=== PATIENT | female | born 1945 | race Caucasian/White ===

== ENCOUNTER → 2016-05-12 | Outpatient (CLI) | payer MEDICARE ==
--- NOTE | 2016-05-12 13:49 | MAM ---
EXAM DESCRIPTION: MAMMO BREAST SCREENING BILATERAL CAD, images were reviewed with CAD technology, R2 computer-aided detection. CLINICAL HISTORY: [facility]. COMPARISON: No prior study currently available. FINDINGS: Routine views are obtained. Scattered glandular contour with slight nodularity and the increased mammographic density period lobulated nodule left breast 12 o'clock, approximately 4 cm from the nipple sonographically. Benign calcifications. No architectural distortion or mammographic abnormality on the right.. IMPRESSION: Incomplete study. BIRAD CATEGORY: 0 INCOMPLETE RECOMMENDATIONS: FOLLOW-UP: Directed left breast sonography. According to the [employer], yearly mammograms are recommended starting at age 40 and continuing as long as a woman is in good health. Any breast change noted on a breast self-exam should be reported promptly to the patient's healthcare provider. Breast MRI is recommended for women with an approximately 20-25% or greater lifetime risk of breast cancer, including women with a strong family history of breast or ovarian cancer and women who have been treated for Hodgkin's disease. Electronically signed by: Lelo Pradhan 05/12/2016 13:48
== END ==
LOC: MAMMO 09:57
PROVIDERS: ATTEND Obstetrics & Gynecology
DX: Z12.31 Encounter for screening mammogram for malignant neoplasm of breast (principal)
CPT/HCPCS: 77052; G0202

== ENCOUNTER → 2016-05-28 | Outpatient (CLI) | payer MEDICARE ==
--- NOTE | 2016-05-28 10:38 | US ---
EXAM DESCRIPTION: US BREAST UNILATERAL CLINICAL HISTORY: Mammographic nodule left breast 12 o'clock. COMPARISON: Screening evaluation 05/12/2016 and prior study from 2013. FINDINGS: Directed left breast ultrasound is performed. A lobule of normal fibroglandular tissue is demonstrated 4 cm from the nipple at 12 o'clock in the left breast with morphology consistent with the nodular density seen on the mammogram. Sonography of the 11-1 o'clock region demonstrated no its sonographic abnormality. IMPRESSION: Benign exam. Mammographic nodule corresponds to a fibroglandular ridge of tissue. There is no sonographic evidence for malignancy. BIRAD CATEGORY: 2 BENIGN RECOMMENDATION: Routine annual mammography. Findings and recommendations were communicated to the patient by the technologist. Electronically signed by: Lelo Pradhan 05/28/2016 10:37
== END | disposition home or self-care (01) ==
LOC: MAMMO 09:30
PROVIDERS: ATTEND Obstetrics & Gynecology
DX: R92.8 Other abnormal and inconclusive findings on diagnostic imaging of breast (principal)

== ENCOUNTER → 2017-07-06 | Outpatient (CLI) | payer MEDICARE ==
--- NOTE | 2017-07-08 16:45 | MAM ---
EXAM DESCRIPTION: 3D Screening BILATERAL : Digital Mammography. CLINICAL HISTORY: 72 years Female ANNUAL SCREENING . No complaints. Remote family history of breast cancer. Postmenopausal. No complaints. COMPARISON: 2-D digital screening bilateral study 05/12/2016. 2-D diagnostic left breast ultrasound 05/28/2016. Reports from prior examinations also reviewed. TECHNIQUE: Bilateral CC and MLO projection full-field images, 3-D tomosynthesis digital mammographic technique. Also bilateral synthesized CC/ MLO full-field images. CAD not utilized. FINDINGS: The breast parenchymal density pattern is: Scattered areas of fibroglandular density. No skin thickening or nipple retraction . Bilateral solitary calcifications. No focal, stellate mass or density, focal asymmetry , and no suspicious microcalcifications bilaterally. Stable mammograms compared to prior study, taking into account differences in mammographic technique IMPRESSION: BI-RADS CATEGORY: 2 - BENIGN FINDINGS. FOLLOW UP: Routine digital bilateral screening, one year interval from June 2017. Written communication explaining the IMPRESSION and follow-up, will be mailed to the patient and referring health care provider. According to the [employer], yearly mammograms are recommended starting at age 40 and continuing as long as a woman is in good health. Any breast change noted on a breast self-exam should be reported promptly to the patient's healthcare provider. Breast MRI is recommended for women with an approximately 20-25% or greater lifetime risk of breast cancer, including women with a strong family history of breast or ovarian cancer and women who have been treated for Hodgkin's disease. A negative mammographic report should not delay tissue diagnosis in patients with significant clinical history or physical findings. Extremely dense breast tissue limits the sensitivity of digital mammography. Electronically signed by: Deepak Diaz MD 07/08/2017 4:43 PM CDT
== END ==
LOC: MAMMO 11:26
PROVIDERS: ATTEND Family Medicine Geriatric Medicine
DX: Z12.31 Encounter for screening mammogram for malignant neoplasm of breast (principal)

== ENCOUNTER → 2018-07-08 | Outpatient (CLI) | payer MEDICARE ==
--- NOTE | 2018-07-12 14:28 | MAM ---
EXAM DESCRIPTION: 3D Screening BILATERAL : Digital Mammography. CLINICAL HISTORY: 73 years Female SCREENING . No complaints. No personal history of breast cancer. Remote family history of breast cancer. Childbirth. Postmenopausal 30 years. No HRT. Lifetime risk of developing breast cancer (Tyrer-Cuzick model)(%): 3.4. COMPARISON: Bilateral screening digital breast tomosynthesis 07/06/2017. TECHNIQUE: Bilateral CC and MLO projection full-field images, digital tomosynthesis mammographic technique. Bilateral digital 2-D full-field MLO images. CAD not available for tomosynthesis or 2-D images. FINDINGS: The breast parenchymal density pattern is: Heterogeneously dense breast tissue, which may obscure small masses. No skin thickening or nipple retraction. Bilateral solitary microcalcifications. Lymph nodes in the left axillary tail focal asymmetry in the middle third of the right breast approximately 8.5 cm from the nipple at the 3:00 position, and also at the 4:00 position. Not associated with microcalcifications.. Slightly more dense and larger since the prior study, best seen on the CC tomosynthesis. No new focal, stellate mass or density, focal asymmetry , and no suspicious microcalcifications left breast. IMPRESSION: BI-RADS CATEGORY: 0 - INCOMPLETE- Need additional imaging evaluation. FOLLOW-UP: Recall for additional imaging: Orthogonal full-field tomosynthesis diagnostic imaging right breast. Optional targeted right breast ultrasound of the region of interest depending on Digital diagnostic findings. Written communication concerning the IMPRESSION and Follow-up, will be mailed to the patient and referring health care provider. Electronically signed by: Deepak Diaz MD 07/12/2018 2:24 PM CDT
== END ==
LOC: MAMMO 10:00
PROVIDERS: ATTEND Obstetrics & Gynecology
DX: Z12.31 Encounter for screening mammogram for malignant neoplasm of breast (principal)

== ENCOUNTER → 2018-07-27 | Outpatient (CLI) | payer MEDICARE ==
--- NOTE | 2018-07-28 12:35 | MAM ---
EXAM DESCRIPTION: Breast,Right (accession [id number]), ultrasound. Diagnostic Mammo,Bilateral (accession [id number]): Digital mammography. CLINICAL HISTORY: 73 yearsFemaleABN MAMMO. Focal asymmetry right breast. COMPARISON: Bilateral screening digital breast tomosynthesis 07/08/2018. TECHNIQUE: Transcutaneous scanning of the right breast utilizing pabon-scale and Doppler modes. Scanning performed by the creative perfumer and Dr. Diaz. Right LM projection full-field images, digital mammographic tomosynthesis technique. Digital spot compression lateral medial and CC projections anterior right breast CAD not available. FINDINGS: The breast parenchymal density pattern is: Scattered areas of fibroglandular density. No skin thickening or nipple retraction focal asymmetry is not as well demonstrated on the spot compression images or the lateral medial tomosynthesis. No new focal, stellate mass or density, , and no suspicious microcalcifications right breast. ULTRASOUND: Scanning of the right breast from the nipple to the middle third of the breast in the 2:00 to 5:00 sectors. Heterogeneous mixture of fibroglandular and fatty echotexture. No dominant solid mass or distinct cyst. No parenchymal edema or large calcifications. No overlying skin changes. Normal vascularity. IMPRESSION: Benign exam. BIRAD CATEGORY: 2 BENIGN FINDINGS. RECOMMENDATIONS: FOLLOW UP: Return to routine digital bilateral mammographic screening, one year interval from June 2018. Written communication explaining the IMPRESSION and follow-up, will be mailed to the patient and referring health care provider. The FINDINGS and the FOLLOW-UP plan were reviewed in person with the patient after the examination. According to the [employer], yearly mammograms are recommended starting at age 40 and continuing as long as a woman is in good health. Any breast change noted on a breast self-exam should be reported promptly to the patient's healthcare provider. Breast MRI is recommended for women with an approximately 20-25% or greater lifetime risk of breast cancer, including women with a strong family history of breast or ovarian cancer and women who have been treated for Hodgkin's disease. A negative mammographic report should not delay tissue diagnosis in patients with significant clinical history or physical findings. Extremely dense breast tissue limits the sensitivity of digital mammography. Electronically signed by: Deepak Diaz MD 07/28/2018 12:32 PM CDT
== END ==
LOC: MAMMO 10:30
PROVIDERS: ATTEND Family Medicine
DX: R92.8 Other abnormal and inconclusive findings on diagnostic imaging of breast (principal)

== ENCOUNTER 2019-03-27 05:10 | Day surgery (SDC) | payer MEDICARE ==
[2019-03-27] MEDS ORDERED: DEXAMETHASONE 0.1% OPHTH SOL 1 DROP LEFT_EYE ONE (10:22)
[2019-03-27] MEDS ORDERED: MIDAZOLAM INJ 2 MG/2 ML VIAL ONE (10:22)
[2019-03-27] MEDS ORDERED: LIDOCAINE 1% 2 ML VIAL INJ ONE ×2 (10:22)
[2019-03-27] MEDS ORDERED: TOBRAMYCIN SULF 0.3 % OPHT SOL 1 DROP LEFT_EYE ONE (10:22)
[2019-03-27] MEDS ORDERED: MOXIFLOXACIN HCL (OPHTH) 1 DROP DROPS LEFT_EYE ONE (10:22)
[2019-03-27] MEDS ORDERED: PROPARACAINE 0.5% OPHTH SOL 15 ML BTTL LEFT_EYE ONE (10:22)
[2019-03-27] MEDS ORDERED: BRIMONIDINE 0.2% OPHTH DROPS LEFT_EYE ONE (10:22)
== END 2019-03-27 11:26 | disposition home or self-care (01) ==
LOC: AMB 05:10
PROVIDERS: ATTEND Ophthalmology
DX: H25.12 Age-related nuclear cataract, left eye (principal); I10 Essential (primary) hypertension; Z88.5 Allergy status to narcotic agent; Z79.899 Other long term (current) drug therapy
CPT/HCPCS: 00142; 66984; J2250

== ENCOUNTER 2019-04-17 05:28 | Day surgery (SDC) | payer MEDICARE ==
[2019-04-17] MEDS: PROPARACAINE 0.5% OPHTH SOL 15 ML BTTL RIGHT_EYE ONE ×2 (09:38→10:01)
[2019-04-17] MEDS: MOXIFLOXACIN HCL (OPHTH) 1 DROP DROPS BOTH_EYES ONE ×2 (09:38→10:01)
[2019-04-17] MEDS: LIDOCAINE 1% 2 ML VIAL INJ ONE ×2 (09:38→10:01)
[2019-04-17] MEDS: TOBRAMYCIN SULF 0.3 % OPHT SOL 1 DROP RIGHT_EYE ONE ×2 (09:39→10:01)
[2019-04-17] MEDS: DEXAMETHASONE 0.1% OPHTH SOL 1 DROP RIGHT_EYE ONE ×2 (09:39→10:01)
[2019-04-17] MEDS: BRIMONIDINE 0.2% OPHTH DROPS RIGHT_EYE ONE ×2 (09:40→10:01)
[2019-04-17] MEDS ORDERED: MIDAZOLAM INJ 2 MG/2 ML VIAL ONE (09:58)
== END 2019-04-17 10:55 | disposition home or self-care (01) ==
LOC: AMB 05:28
PROVIDERS: ATTEND Ophthalmology
DX: H25.11 Age-related nuclear cataract, right eye (principal)
CPT/HCPCS: 00142; 66984; J2250

== ENCOUNTER → 2019-08-23 | Outpatient (CLI) | payer MEDICARE ==
--- NOTE | 2019-08-23 20:56 | MAM ---
EXAM DESCRIPTION: 3D Screening BILATERAL : Digital Mammography. CLINICAL HISTORY: 74 years Female ANNUAL SCREENING . No complaints. No personal history of breast cancer. Remote family history of breast cancer. Menarche age 11. Childbirth age 21. Menopause age 42. No HRT. Lifetime risk of developing breast cancer (Tyrer-Cuzick model)(%): 3.2 COMPARISON: Bilateral screening digital breast tomosynthesis June 2018 and diagnostic digital right breast tomosynthesis July 2018. TECHNIQUE: Bilateral CC and MLO projection full-field images, digital tomosynthesis mammographic technique. Bilateral digital 2-D full-field MLO images. and CC images. CAD available for 2-D images. FINDINGS: The breast parenchymal density pattern is: Heterogeneously dense breast tissue, which may obscure small masses. No skin thickening or nipple retraction. Bilateral solitary microcalcifications. Left axillary nodes. No new focal, stellate mass or density, focal asymmetry , and no suspicious microcalcifications bilaterally. Stable mammograms compared to prior study. IMPRESSION: Benign exam. BIRAD CATEGORY: 2 BENIGN FINDINGS. RECOMMENDATIONS: FOLLOW UP: Routine digital bilateral mammographic screening, one year interval from August 2019. Written communication explaining the IMPRESSION and follow-up, will be mailed to the patient and referring health care provider. According to the [employer], yearly mammograms are recommended starting at age 40 and continuing as long as a woman is in good health. Any breast change noted on a breast self-exam should be reported promptly to the patient's healthcare provider. Breast MRI is recommended for women with an approximately 20-25% or greater lifetime risk of breast cancer, including women with a strong family history of breast or ovarian cancer and women who have been treated for Hodgkin's disease. A negative mammographic report should not delay tissue diagnosis in patients with significant clinical history or physical findings. Extremely dense breast tissue limits the sensitivity of digital mammography. Electronically signed by: Deepak Diaz MD 08/23/2019 8:54 PM CDT
== END ==
LOC: MAMMO 09:00
PROVIDERS: ATTEND Nurse Practitioner Acute Care
DX: Z12.31 Encounter for screening mammogram for malignant neoplasm of breast (principal)

== ENCOUNTER → 2019-10-03 | Outpatient (CLI) | payer MEDICARE ==
--- NOTE | 2019-10-04 15:12 | US ---
EXAM DESCRIPTION: Venous,Lower Extremity RT: ULTRASOUND. CLINICAL HISTORY: PAIN IN RIGHT THIGH COMPARISON: None Available. TECHNIQUE: Leos-scale and doppler sonographic evaluation of the deep venous system of the right lower extremity. FINDINGS: Doppler evaluation shows normal color flow and normal phasicity and augmentation of the right common femoral vein, femoral vein, popliteal vein, greater saphenous vein, junction with the CFV. Also normal color flow and normal phasicity and augmentation of the peroneal, and posterior tibial vein. The right lower extremity deep veins were completely compressible; normal occlusion with transducer pressure. Leos-scale survey showed no echogenic thrombus within these veins. IMPRESSION: 1. Duplex ultrasound evaluation of the right lower extremity deep venous system showing no evidence of thrombosis. Electronically signed by: Deepak Diaz MD 10/04/2019 3:10 PM CDT
== END ==
LOC: US 10:00
PROVIDERS: ATTEND Family Medicine
DX: M79.651 Pain in right thigh (principal)

== ENCOUNTER → 2020-01-12 | Outpatient (CLI) | payer MEDICARE ==
--- NOTE | 2020-01-15 09:14 | MRI ---
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 Anterior ankle pain radiates to lateral side, swelling, no history of injury. COMPARISON: None Available. TECHNIQUE: MRI of the right ankle is performed with multiplanar multi sequence imaging, without intravenous contrast. FINDINGS: BONE AND JOINT: Focal bone hyperintense bone marrow signal is present involving the talus at the posterior facet (series 6 on image 13). There is increased signal within the lateral sinus tarsi fat adjacent to the area of bony contusion representing mild fat impingement. No fracture. No suspicious osseous lesion. No significant ankle joint effusion. Cartilage: No osteochondral defect within the talar dome. No full-thickness cartilage loss. TENDONS/FASCIA: The posterior tibialis, flexor hallucis longus, and flexor digitorum longus tendons are intact. The extensor tendons are intact. No focal tendon tear. The peroneal tendons are intact aside from mild reactive tenosynovitis. Mild thickening of the plantar fascia consistent with mild plantar fasciitis. Mild thickening of the distal Achilles tendon consistent with mild insertional tendinosis. Small dorsal calcaneal enthesophyte measures 7 mm at the Achilles tendon attachment. LIGAMENTS: The lateral ankle ligaments including the anterior and posterior talofibular, calcaneal fibular, and anterior and posterior tibiofibular ligaments are intact. The medial ankle ligaments including the superficial and deep fibers of the deltoid ligament is intact. The spring ligament is intact. SOFT TISSUES: No solid or cystic mass is seen. The content of the tarsal tunnel appears to be intact. The posterior tibial nerve is normal in caliber without focal signal alteration or evidence of neuritis. IMPRESSION: 1. Talus posterior subtalar facet focal bone marrow edema/contusion. There is associated mild impingement edema within the adjacent sinus tarsi fat. 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 2. No solid or cystic mass. 3. Trace reactive peroneal tenosynovitis. 4. 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 Electronically signed by: Luis Arzola DO 01/15/2020 9:12 AM CDT
== END ==
LOC: MRI 13:00
PROVIDERS: ATTEND Podiatrist Foot & Ankle Surgery
DX: G57.51 Tarsal tunnel syndrome, right lower limb (principal); M76.821 Posterior tibial tendinitis, right leg; M72.2 Plantar fascial fibromatosis; M25.571 Pain in right ankle and joints of right foot; R60.0 Localized edema

== ENCOUNTER → 2020-02-15 | Outpatient (CLI) | payer MEDICARE | LOC: GMAM 10:39 | PROVIDERS: ATTEND Family Medicine | DX: E55.9 Vitamin D deficiency, unspecified (principal); I10 Essential (primary) hypertension ==